=== PATIENT | female | born 1975 | race Caucasian/White ===

== ENCOUNTER 2018-08-11 11:26 | Emergency (ER) | payer SELFPAY, BC ==
[2018-08-11 12:51] LABS: ADD MAN DIFF? NO
[2018-08-11 12:56] LABS: BASOPHILS % 0.3 % (0.0-2.0); EOSINOPHILS # 0.1 10^3/ul (0.0-0.5); EOSINOPHILS % 0.6 % (0.0-7.0); HEMATOCRIT 41.7 % (37.0-47.0); HEMOGLOBIN 13.9 g/dl (12.0-16.0); LYMPHOCYTES # 1.7 10^3/ul (0.8-2.9); LYMPHOCYTES % 13.6 % (15.0-51.0); MEAN CORPUSCULAR HEMOGLOBIN 29.4 pg (29.0-33.0); MEAN CORPUSCULAR HGB CONC 33.3 g/dl (32.0-37.0); MEAN CORPUSCULAR VOLUME 88.3 fl (82.0-101.0); MEAN PLATELET VOLUME 10.1 fl (7.4-10.4); MONOCYTE # 0.8 10^3/ul (0.3-0.9); MONOCYTES % 6.1 % (0.0-11.0); NEUTROPHIL # 9.8 10^3/ul (1.6-7.5); NEUTROPHILS % 79.1 % (39.0-77.0); PLATELET COUNT 289 10^3/UL (140-415); RED BLOOD COUNT 4.72 10^6/ul (4.20-5.40); RED CELL DISTRIBUTION WIDTH 12.5 % (11.5-14.5)
[2018-08-11 12:56] LABS: WHITE BLOOD COUNT 12.4 10^3/ul (4.8-10.8)
[2018-08-11 13:13] LABS: ALANINE AMINOTRANSFERASE 31 IU/L (13-69); ALBUMIN 4.4 g/dl (3.3-4.9); ALBUMIN/GLOBULIN RATIO 1.29; ALKALINE PHOSPHATASE 82 IU/L (42-121); ANION GAP 11 (5-13); ASPARTATE AMINO TRANSFERASE 21 IU/L (15-46); BILIRUBIN,INDIRECT 0.4 mg/dl (0-1.1); BILIRUBIN,TOTAL 0.4 mg/dl (0.2-1.3); BLOOD UREA NITROGEN 15 mg/dl (7-20); CALCIUM 9.4 mg/dl (8.4-10.2); CARBON DIOXIDE 22 mmol/L (21-31); CHLORIDE 110 mmol/L (97-110); CREATINE KINASE 59 IU/L (23-200); CREATININE 0.49 mg/dl (0.44-1.00); Estimated GFR > 60 mL/min (>60); GLUCOSE 95 mg/dl (70-220); SODIUM 143 mmol/L (135-144); TOTAL PROTEIN 7.8 g/dl (6.1-8.1)
[2018-08-11 13:15] LABS: INR 0.88; PT RATIO 0.9
[2018-08-11 13:16] LABS: PARTIAL THROMBOPLASTIN TIME 30.4 Sec (23.0-35.0)
[2018-08-11 13:22] LABS: CK INDEX 1.1; CK-MB 0.66 ng/ml (0.0-2.4)
[2018-08-11 13:27] LABS: B-TYPE NATRIURETIC PEPTIDE 52 PG/ML (0-125); TROPONIN-I < 0.012 ng/ml (0.000-0.120)
== END 2018-08-11 14:22 | disposition home or self-care (01) ==
LOC: E/R 11:26
DX: I10 Essential (primary) hypertension (principal)
CPT/HCPCS: 80053; 82550; 82553; 83880; 84484; 85025; 85610; 85730; 93005; 99283